=== PATIENT | female | born 1940 | race Hispanic/Latino ===

== ENCOUNTER → 2019-11-25 | Outpatient (CLI) | payer OTHER | END | disposition home or self-care (01) | LOC: RAH 11:30 | PROVIDERS: ATTEND Physical Medicine & Rehabilitation | DX: M47.812 Spondylosis without myelopathy or radiculopathy, cervical region (principal); R29.2 Abnormal reflex | CPT/HCPCS: 72141 ==

== ENCOUNTER → 2019-12-28 | Outpatient (CLI) | payer OTHER | END | disposition home or self-care (01) | LOC: RAH 10:01 | PROVIDERS: ATTEND Physical Medicine & Rehabilitation | DX: G31.1 Senile degeneration of brain, not elsewhere classified (principal); I67.82 Cerebral ischemia | CPT/HCPCS: 70551 ==